=== PATIENT | male | born 1950 | race Caucasian/White ===

== ENCOUNTER 2019-11-19 00:53 | Inpatient (IN) ==
[2019-11-19] MEDS ORDERED: Naloxone 0.4 MG/ML INJ IVP PRN (02:56)
[2019-11-19] MEDS ORDERED: 0.9 % Sodium Chloride 500 ML IVC ONE (05:21)
[2019-11-19 06:01] LABS: INR 2.2
[2019-11-19] MEDS: *HR* OxyCODONE Immed Rel 5 MG TABLET PO SCH ×3 (06:05→18:27)
[2019-11-19] MEDS: Azithromycin 500 MG in 0.9 % Sodium Chloride 250 ML IVPB SCH (06:06)
[2019-11-19 06:19] LABS: Calcium 7.9 mg/dL (8.6-10.3); Magnesium 1.6 mg/dL (1.6-2.6); Phosphorous 3.5 mg/dL (2.7-4.5); Potassium 3.9 mEq/L (3.5-5.1)
[2019-11-19 07:03] LABS: Basophils # 0.1 K/mcL (0.0-0.2); Basophils % 0.4 %; Eosinophils % 0.2 %; Hematocrit 26.2 % (37.5-50.1); Hemoglobin 8.1 g/dL (12.9-16.9); Immature Granulocytes % 0.4 % (0-4); Lymphocytes # 1.9 K/mcL (0.6-4.6); Lymphocytes % 11.5 %; Mean Corpuscular HGB Conc 30.9 g/dL (31.6-35.5); Mean Corpuscular Hemoglobin 29.9 pg (28.0-33.3); Mean Corpuscular Volume 96.7 fL (83.0-100.0); Mean Platelet Volume 10.6 fL (9.4-12.4); Monocytes # 1.4 K/mcL (0.0-1.3); Monocytes % 8.8 %; Neutrophils # 12.9 K/mcL (1.6-8.9); Platelet Count 148 K/mcL (140-400); Red Blood Count 2.71 M/mcL (4.19-5.50); Red Cell Distribution Width 15.9 % (11.5-14.5); Segmented Neutrophils % 78.7 %; White Blood Count 16.3 K/mcL (4.3-11.1)
[2019-11-19] MEDS: cefTRIAXone 1,000 MG in 0.9 % Sodium Chloride Mini Bag 100 ML IVPB SCH (09:36)
[2019-11-19] MEDS: hydrALAZINE 25 MG TABLET PO SCH ×2 (09:37→19:55)
[2019-11-19] MEDS ORDERED: Cyanocobalamin (B-12) 1,000 MCG/ML VIAL IM ONE (10:42)
[2019-11-19] MEDS ORDERED: Perflutren Lipid Microsphere 1.3 ML in 0.9 % Sodium Chloride 8.7 ML IVP PRN (11:55)
[2019-11-19 14:00] LABS: Sodium, Urine 49.5 mEq/L
[2019-11-19] MEDS: Cyanocobalamin (B-12) 1,000 MCG/ML VIAL IM SCH (16:42)
[2019-11-19] MEDS ORDERED: Warfarin perPT PO PRN (18:00)
[2019-11-19] MEDS ORDERED: *HR* Warfarin 2.5 MG TABLET PO ONE (18:00)
[2019-11-19 20:59] LABS: Procalcitonin 2.16 ng/mL (0.00-0.15)
[2019-11-20] MEDS: *HR* OxyCODONE Immed Rel 5 MG TABLET PO SCH ×4 (00:10→18:04)
[2019-11-20 01:20] LABS: Basophils % 0.5 %; Eosinophils # 0.4 K/mcL (0.0-0.6); Eosinophils % 4.7 %; Hematocrit 25.6 % (37.5-50.1); Hemoglobin 8.3 g/dL (12.9-16.9); Immature Granulocytes % 0.2 % (0-4); Lymphocytes # 1.5 K/mcL (0.6-4.6); Lymphocytes % 17.2 %; Mean Corpuscular HGB Conc 32.4 g/dL (31.6-35.5); Mean Corpuscular Hemoglobin 31.3 pg (28.0-33.3); Mean Corpuscular Volume 96.6 fL (83.0-100.0); Mean Platelet Volume 10.6 fL (9.4-12.4); Monocytes # 0.9 K/mcL (0.0-1.3); Monocytes % 10.2 %; Neutrophils # 5.9 K/mcL (1.6-8.9); Platelet Count 145 K/mcL (140-400); Red Blood Count 2.65 M/mcL (4.19-5.50); Red Cell Distribution Width 16.1 % (11.5-14.5); Segmented Neutrophils % 67.2 %; White Blood Count 8.8 K/mcL (4.3-11.1)
[2019-11-20 01:23] LABS: Prothrombin Time 22.3 Seconds (9.4-12.1)
[2019-11-20 01:38] LABS: Albumin/Globulin Ratio 1.1 (1.1-2.2); Bilirubin,Total 0.4 mg/dL (0.3-1.0); Calcium 8.2 mg/dL (8.6-10.3); Globulin 2.8 g/dL (2.4-3.5); Potassium 3.7 mEq/L (3.5-5.1); Total Protein 5.8 g/dL (6.4-8.9)
[2019-11-20] MEDS: Azithromycin 500 MG in 0.9 % Sodium Chloride 250 ML IVPB SCH (06:01)
[2019-11-20] MEDS: hydrALAZINE 25 MG TABLET PO SCH ×3 (07:52→21:35)
[2019-11-20] MEDS: cefTRIAXone 1,000 MG in 0.9 % Sodium Chloride Mini Bag 100 ML IVPB SCH (07:52)
[2019-11-20] MEDS ORDERED: Dextrose Gel 15 GM/37.5 ML TUBE PO PRN ×2 (08:50)
[2019-11-20] MEDS ORDERED: *HR* Dextrose 50 % in Water (Vial) 50 ML VIAL IVP PRN (08:50)
[2019-11-20] MEDS ORDERED: D5% in Water 1,000 ML IVC PRN (08:50)
[2019-11-20] MEDS ORDERED: Furosemide 40 MG TABLET PO SCH (09:00)
[2019-11-20] MEDS: Gabapentin 300 MG CAPSULE PO SCH ×3 (09:48→21:35)
[2019-11-20 10:21] LABS: Bilirubin,Urine Negative (Negative); Blood,Urine Trace-lysed (Negative); Clarity,Urine Clear (Clear); Color,Urine Yellow (Yellow); Glucose,Urine (UA) 500 mg/dL (Normal); Ketones,Urine Negative (Negative); Leukocyte Esterase,Urine Trace (Negative); Nitrite,Urine Negative (Negative); PH,Urine 6.5 pH Units (5.0-8.0); Protein,Urine >=300 mg/dL (Neg-Trace); Specific Gravity,Urine >= 1.030 (1.010-1.025); Urobilinogen,Urine Normal (Normal)
[2019-11-20 10:25] LABS: Amorphous Sediment,Urine Few per hpf (None-Few); Bacteria,Urine Few per hpf (None-Few); Squamous Epithelial Cell,Urine Few per hpf (None-Few)
[2019-11-20] MEDS: Insulin LISPRO 300 UNITS/3 ML VIAL SQ SCH ×2 (11:42→16:31)
[2019-11-20 12:40] LABS: Estimated Average Glucose 114 mg/dl; Hemoglobin A1C 5.6 %
[2019-11-20] MEDS ORDERED: Ipratropium/Albuterol Neb 3 ML IH PRN (14:18)
[2019-11-20] MEDS: Cyanocobalamin (B-12) 1,000 MCG/ML VIAL IM SCH (15:20)
[2019-11-20] MEDS: amLODIPine 5 MG TABLET PO SCH (16:31)
[2019-11-20 17:01] LABS: Thyroid Stimulating Hormone 8.219 mcIU/mL (0.340-5.600)
[2019-11-20] MEDS ORDERED: *HR* Warfarin 2.5 MG TABLET PO ONE (18:00)
[2019-11-20] MEDS ORDERED: Aminoglycoside Consult 1 EACH MC ONE (18:14)
[2019-11-20] MEDS: Metoprolol 100 MG TABLET PO SCH (21:35)
[2019-11-20] MEDS: sulfaSALAzine 500 MG TABLET PO SCH (21:35)
[2019-11-21] MEDS: *HR* OxyCODONE Immed Rel 5 MG TABLET PO SCH ×4 (01:17→16:48)
[2019-11-21 03:13] LABS: INR 1.5; Prothrombin Time 17.6 Seconds (9.4-12.1)
[2019-11-21 03:14] LABS: Basophils # 0.1 K/mcL (0.0-0.2); Basophils % 0.4 %; Eosinophils # 0.6 K/mcL (0.0-0.6); Eosinophils % 5.4 %; Hemoglobin 8.1 g/dL (12.9-16.9); Immature Granulocytes % 0.3 % (0-4); Lymphocytes # 1.4 K/mcL (0.6-4.6); Lymphocytes % 12.3 %; Mean Corpuscular HGB Conc 31.2 g/dL (31.6-35.5); Mean Corpuscular Hemoglobin 29.7 pg (28.0-33.3); Mean Corpuscular Volume 95.2 fL (83.0-100.0); Monocytes # 1.1 K/mcL (0.0-1.3); Monocytes % 9.5 %; Neutrophils # 8.3 K/mcL (1.6-8.9); Platelet Count 164 K/mcL (140-400); Red Blood Count 2.73 M/mcL (4.19-5.50); Red Cell Distribution Width 15.9 % (11.5-14.5); Segmented Neutrophils % 72.1 %; White Blood Count 11.6 K/mcL (4.3-11.1)
[2019-11-21 03:30] LABS: Calcium 7.9 mg/dL (8.6-10.3); Potassium 3.5 mEq/L (3.5-5.1)
[2019-11-21] MEDS: Azithromycin 500 MG in 0.9 % Sodium Chloride 250 ML IVPB SCH (06:21)
[2019-11-21] MEDS: Metoprolol 100 MG TABLET PO SCH ×2 (09:01→20:50)
[2019-11-21] MEDS: sulfaSALAzine 500 MG TABLET PO SCH ×2 (09:27→20:48)
[2019-11-21] MEDS: hydrALAZINE 25 MG TABLET PO SCH ×3 (09:27→20:51)
[2019-11-21] MEDS: amLODIPine 5 MG TABLET PO SCH (09:27)
[2019-11-21] MEDS: Gabapentin 300 MG CAPSULE PO SCH ×3 (09:27→20:48)
[2019-11-21] MEDS: cefTRIAXone 1,000 MG in 0.9 % Sodium Chloride Mini Bag 100 ML IVPB SCH (09:27)
[2019-11-21] MEDS: Insulin LISPRO 300 UNITS/3 ML VIAL SQ SCH ×3 (09:28→16:49)
[2019-11-21] MEDS: Cyanocobalamin (B-12) 1,000 MCG/ML VIAL IM SCH (15:55)
[2019-11-21] MEDS ORDERED: *HR* Warfarin 5 MG TABLET PO ONE (18:00)
[2019-11-21] MEDS ORDERED: Warfarin perPT PO PRN (18:00)
[2019-11-22] MEDS: *HR* OxyCODONE Immed Rel 5 MG TABLET PO SCH ×4 (00:25→18:03)
[2019-11-22] MEDS ORDERED: *HR* Labetalol 20 MG/4 ML SYRINGE IVP ONE (05:02)
[2019-11-22 06:04] LABS: Basophils # 0.1 K/mcL (0.0-0.2); Basophils % 0.7 %; Eosinophils # 0.7 K/mcL (0.0-0.6); Eosinophils % 8.2 %; Hematocrit 25.7 % (37.5-50.1); Hemoglobin 8.2 g/dL (12.9-16.9); Immature Granulocytes % 0.4 % (0-4); Lymphocytes # 1.4 K/mcL (0.6-4.6); Lymphocytes % 17.3 %; Mean Corpuscular HGB Conc 31.9 g/dL (31.6-35.5); Mean Corpuscular Hemoglobin 30.9 pg (28.0-33.3); Mean Platelet Volume 10.6 fL (9.4-12.4); Monocytes # 0.8 K/mcL (0.0-1.3); Monocytes % 9.7 %; Neutrophils # 5.2 K/mcL (1.6-8.9); Platelet Count 161 K/mcL (140-400); Red Blood Count 2.65 M/mcL (4.19-5.50); Red Cell Distribution Width 15.9 % (11.5-14.5); Segmented Neutrophils % 63.7 %; White Blood Count 8.2 K/mcL (4.3-11.1)
[2019-11-22 06:06] LABS: INR 1.5; Prothrombin Time 17.1 Seconds (9.4-12.1)
[2019-11-22 06:28] LABS: Albumin 3.1 g/dL (3.5-5.7); Albumin/Globulin Ratio 1.1 (1.1-2.2); Bilirubin,Total 0.4 mg/dL (0.3-1.0); Calcium 8.1 mg/dL (8.6-10.3); Globulin 2.9 g/dL (2.4-3.5); Potassium 3.7 mEq/L (3.5-5.1)
[2019-11-22 06:32] LABS: Thyroid Stimulating Hormone 8.887 mcIU/mL (0.340-5.600)
[2019-11-22] MEDS: sulfaSALAzine 500 MG TABLET PO SCH ×2 (07:34→21:51)
[2019-11-22] MEDS: hydrALAZINE 25 MG TABLET PO SCH ×3 (07:34→21:50)
[2019-11-22] MEDS: Metoprolol 100 MG TABLET PO SCH ×2 (07:35→21:57)
[2019-11-22] MEDS: Azithromycin 250 MG TABLET PO SCH (07:35)
[2019-11-22] MEDS: Gabapentin 300 MG CAPSULE PO SCH ×3 (07:35→21:51)
[2019-11-22] MEDS: cefTRIAXone 1,000 MG in 0.9 % Sodium Chloride Mini Bag 100 ML IVPB SCH (07:35)
[2019-11-22] MEDS: amLODIPine 5 MG TABLET PO SCH (07:35)
[2019-11-22] MEDS: Insulin LISPRO 300 UNITS/3 ML VIAL SQ SCH ×3 (07:38→17:01)
[2019-11-22] MEDS ORDERED: 0.9 % Sodium Chloride 1,000 ML IVC ONE (12:00)
[2019-11-22 14:34] LABS: Bacteria,Urine Few per hpf (None-Few); Bilirubin,Urine Negative (Negative); Blood,Urine Negative (Negative); Clarity,Urine Clear (Clear); Color,Urine Yellow (Yellow); Glucose,Urine (UA) 500 mg/dL (Normal); Ketones,Urine Negative (Negative); Leukocyte Esterase,Urine Negative (Negative); Mucus,Urine Few per lpf (None-Few); Nitrite,Urine Negative (Negative); Protein,Urine >=600 mg/dL (Neg-Trace); Specific Gravity,Urine 1.019 (1.010-1.025); Squamous Epithelial Cell,Urine Few per hpf (None-Few); Urobilinogen,Urine Normal (Normal); WBC,Urine 15-30 per hpf (0-3)
[2019-11-22] MEDS: Cyanocobalamin (B-12) 1,000 MCG/ML VIAL IM SCH (15:53)
[2019-11-22] MEDS ORDERED: *HR* Warfarin 5 MG TABLET PO ONE (18:00)
[2019-11-23] MEDS: *HR* OxyCODONE Immed Rel 5 MG TABLET PO SCH ×5 (00:07→23:44)
[2019-11-23 02:56] LABS: Sodium, Urine 25.3 mEq/L
[2019-11-23] MEDS: sulfaSALAzine 500 MG TABLET PO SCH ×2 (07:30→21:02)
[2019-11-23] MEDS: Insulin LISPRO 300 UNITS/3 ML VIAL SQ SCH ×3 (07:31→17:30)
[2019-11-23] MEDS: Azithromycin 250 MG TABLET PO SCH (07:31)
[2019-11-23] MEDS: Amoxicillin/Clavulanate 500 MG TABLET PO SCH ×2 (07:31→17:30)
[2019-11-23] MEDS: Gabapentin 300 MG CAPSULE PO SCH ×3 (07:31→21:03)
[2019-11-23] MEDS: amLODIPine 5 MG TABLET PO SCH (07:31)
[2019-11-23] MEDS: hydrALAZINE 25 MG TABLET PO SCH ×3 (07:31→21:03)
[2019-11-23] MEDS: Metoprolol 100 MG TABLET PO SCH ×2 (07:32→21:03)
[2019-11-23 07:44] LABS: INR 1.6
[2019-11-23 07:53] LABS: Hematocrit 25.7 % (37.5-50.1); Hemoglobin 8.1 g/dL (12.9-16.9); Mean Corpuscular HGB Conc 31.5 g/dL (31.6-35.5); Mean Corpuscular Hemoglobin 30.2 pg (28.0-33.3); Mean Corpuscular Volume 95.9 fL (83.0-100.0); Mean Platelet Volume 10.7 fL (9.4-12.4); Platelet Count 193 K/mcL (140-400); Red Blood Count 2.68 M/mcL (4.19-5.50); Red Cell Distribution Width 15.7 % (11.5-14.5); White Blood Count 8.4 K/mcL (4.3-11.1)
[2019-11-23 08:25] LABS: Calcium 8.1 mg/dL (8.6-10.3); Thyroid Stimulating Hormone 8.126 mcIU/mL (0.340-5.600)
[2019-11-23 13:10] LABS: Complement C3 109 mg/dL (87-200)
[2019-11-23] MEDS: Cyanocobalamin (B-12) 1,000 MCG/ML VIAL IM SCH (15:16)
[2019-11-23] MEDS ORDERED: *HR* Warfarin 5 MG TABLET PO ONE (18:00)
[2019-11-24] MEDS ORDERED: *HR* Labetalol 20 MG/4 ML SYRINGE IVP ONE (04:10)
[2019-11-24] MEDS: *HR* OxyCODONE Immed Rel 5 MG TABLET PO SCH ×2 (06:21→12:06)
[2019-11-24] MEDS: sulfaSALAzine 500 MG TABLET PO SCH (07:20)
[2019-11-24] MEDS: hydrALAZINE 25 MG TABLET PO SCH ×2 (07:20→15:59)
[2019-11-24] MEDS: amLODIPine 5 MG TABLET PO SCH (07:20)
[2019-11-24] MEDS: Metoprolol 100 MG TABLET PO SCH (07:20)
[2019-11-24] MEDS: Gabapentin 300 MG CAPSULE PO SCH ×2 (07:20→15:59)
[2019-11-24] MEDS: Amoxicillin/Clavulanate 500 MG TABLET PO SCH ×2 (07:20→18:18)
[2019-11-24] MEDS: Insulin LISPRO 300 UNITS/3 ML VIAL SQ SCH ×2 (07:20→12:06)
[2019-11-24] MEDS: Azithromycin 250 MG TABLET PO SCH (07:20)
[2019-11-24 07:33] LABS: Hematocrit 25.6 % (37.5-50.1); Mean Corpuscular HGB Conc 31.3 g/dL (31.6-35.5); Mean Corpuscular Hemoglobin 29.5 pg (28.0-33.3); Mean Corpuscular Volume 94.5 fL (83.0-100.0); Mean Platelet Volume 10.6 fL (9.4-12.4); Platelet Count 190 K/mcL (140-400); Red Blood Count 2.71 M/mcL (4.19-5.50); Red Cell Distribution Width 15.8 % (11.5-14.5)
[2019-11-24 07:43] LABS: INR 1.6; Prothrombin Time 18.5 Seconds (9.4-12.1)
[2019-11-24 07:52] LABS: Albumin 3.1 g/dL (3.5-5.7); Calcium 8.2 mg/dL (8.6-10.3); Phosphorous 4.6 mg/dL (2.7-4.5); Potassium 3.9 mEq/L (3.5-5.1)
[2019-11-24 15:31] VITALS: BP 183/74
[2019-11-24] MEDS: Cyanocobalamin (B-12) 1,000 MCG/ML VIAL IM SCH (15:59)
[2019-11-24] MEDS ORDERED: *HR* Warfarin 5 MG TABLET PO ONE (18:00)
[2019-11-25 15:32] LABS: HIV-1 Ab Supplemental INDETERMINATE (Negative); HIV-2 Ab Supplemental NEGATIVE (Negative)
[2019-11-25 22:08] LABS: Kappa Qnt Free Light Chains 123.22 mg/L (3.30-19.40); Lambda Qnt Free Light Chains 52.95 mg/L (5.71-26.30)
[2019-11-26 10:31] LABS: Alpha 2 Globulin (PEP) 0.98 g/dL (0.48-1.05); Beta Globulin (PEP) 0.66 g/dL (0.48-1.10)
[2019-11-26 11:34] LABS: ANA IgG by ELISA DETECTED (None Detected)
[2019-11-26 11:46] LABS: IFE Reflexed NOT DONE
[2019-11-26 11:58] LABS: Serine Protease-3 Antibody 4 AU/mL (0-19)
[2019-11-27 08:15] LABS: ANA HEp-2 IgG IFA DETECTED (<1:80); Anti Nuclear Ab Pattern SPECKLED
== END 2019-11-24 18:15 | disposition home or self-care (01) | DRG 871 ==
LOC: 2ANU → SUATTDRO 02:41
PROVIDERS: ADMIT Family Medicine; ATTEND Internal Medicine

== ENCOUNTER 2020-03-06 18:17 | Inpatient (IN) ==
[2020-03-06] MEDS ORDERED: Naloxone 0.4 MG/ML INJ IVP PRN (21:09)
[2020-03-06] MEDS ORDERED: D5% in Water 1,000 ML IVC PRN (21:16)
[2020-03-06] MEDS ORDERED: Dextrose Gel 15 GM/37.5 ML TUBE PO PRN ×2 (21:16)
[2020-03-06] MEDS ORDERED: *HR* Dextrose 50 % in Water (Vial) 50 ML VIAL IVP PRN (21:16)
[2020-03-06] MEDS: Pantoprazole 40 MG in 0.9 % Sodium Chloride Mini Bag 100 ML IVC SCH (21:28)
[2020-03-06] MEDS: 0.9 % Sodium Chloride 1,000 ML IVC SCH (21:29)
[2020-03-06] MEDS ORDERED: 0.9 % Sodium Chloride 250 ML IVC SCH (22:30)
[2020-03-06] MEDS: Metoprolol 100 MG TABLET PO SCH (22:53)
[2020-03-07 00:29] LABS: Basophils # 0.1 K/mcL (0.0-0.2); Basophils % 0.4 %; Eosinophils # 0.1 K/mcL (0.0-0.6); Eosinophils % 0.5 %; Hematocrit 22.2 % (37.5-50.1); Hemoglobin 6.9 g/dL (12.9-16.9); Immature Granulocytes % 0.4 % (0-4); Lymphocytes # 0.4 K/mcL (0.6-4.6); Lymphocytes % 3.8 %; Mean Corpuscular HGB Conc 31.1 g/dL (31.6-35.5); Mean Corpuscular Hemoglobin 30.4 pg (28.0-33.3); Mean Corpuscular Volume 97.8 fL (83.0-100.0); Mean Platelet Volume 10.5 fL (9.4-12.4); Monocytes # 1.2 K/mcL (0.0-1.3); Monocytes % 10.5 %; Neutrophils # 9.6 K/mcL (1.6-8.9); Nucleated Red Blood Cells 0.2 /100 WBC (0); Platelet Count 197 K/mcL (140-400); Red Blood Count 2.27 M/mcL (4.19-5.50); Red Cell Distribution Width 15.4 % (11.5-14.5); Segmented Neutrophils % 84.4 %; White Blood Count 11.3 K/mcL (4.3-11.1)
[2020-03-07 00:31] LABS: % Iron Saturation 5 % (20-55); Calcium 8.3 mg/dL (8.6-10.3); Iron 10 mcg/dL (65-175); Potassium 3.5 mEq/L (3.5-5.1); Transferrin 157 mg/dL (203-362)
[2020-03-07 00:36] LABS: Troponin I 0.1 ng/mL (< 0.04)
[2020-03-07 00:46] LABS: Triiodothyronine (T3) Free 2.63 pg/mL (2.50-3.90)
[2020-03-07 00:50] LABS: Ferritin 110 ng/mL (20-250)
[2020-03-07] MEDS: Insulin LISPRO 300 UNITS/3 ML VIAL SQ SCH ×4 (01:21→19:25)
[2020-03-07 03:34] LABS: Basophils % 0.4 %; Eosinophils % 0.4 %; Hematocrit 20.2 % (37.5-50.1); Hemoglobin 6.5 g/dL (12.9-16.9); Immature Granulocytes % 0.4 % (0-4); Lymphocytes # 0.6 K/mcL (0.6-4.6); Lymphocytes % 6.1 %; Mean Corpuscular HGB Conc 32.2 g/dL (31.6-35.5); Mean Corpuscular Hemoglobin 31.7 pg (28.0-33.3); Mean Corpuscular Volume 98.5 fL (83.0-100.0); Mean Platelet Volume 10.5 fL (9.4-12.4); Monocytes # 1.1 K/mcL (0.0-1.3); Monocytes % 10.8 %; Neutrophils # 8.1 K/mcL (1.6-8.9); Nucleated Red Blood Cells 0.3 /100 WBC (0); Platelet Count 179 K/mcL (140-400); Red Blood Count 2.05 M/mcL (4.19-5.50); Red Cell Distribution Width 15.3 % (11.5-14.5); Segmented Neutrophils % 81.9 %; White Blood Count 9.9 K/mcL (4.3-11.1)
[2020-03-07 03:35] LABS: Hematocrit 20.7 % (37.5-50.1); Hemoglobin 6.5 g/dL (12.9-16.9)
[2020-03-07 03:45] LABS: INR 1.9; Prothrombin Time 21.8 Seconds (9.4-12.1)
[2020-03-07 03:48] LABS: Activated Partial Thrombo Time 32.5 Seconds (26.0-36.0); Potassium 3.7 mEq/L (3.5-5.1)
[2020-03-07] MEDS ORDERED: 0.9 % Sodium Chloride Mini Bag 100 ML ONE (04:14)
[2020-03-07] MEDS: Pantoprazole 40 MG in 0.9 % Sodium Chloride Mini Bag 100 ML IVC SCH ×5 (04:33→22:42)
[2020-03-07] MEDS: Metoprolol 100 MG TABLET PO SCH ×2 (07:57→20:16)
[2020-03-07] MEDS ORDERED: Iron Sucrose Complex 250 MG in 0.9 % Sodium Chloride 250 ML IVPB SCH (09:00)
[2020-03-07 09:59] LABS: Hematocrit 23.7 % (37.5-50.1); Hemoglobin 7.3 g/dL (12.9-16.9)
[2020-03-07 12:51] LABS: VBG Ionized Calcium 1.05 mmol/L (1.15-1.35)
[2020-03-07] MEDS: 0.9 % Sodium Chloride 1,000 ML IVC SCH (14:00)
[2020-03-07] MEDS: Furosemide 40 MG TABLET PO SCH ×2 (14:10→20:16)
[2020-03-07 15:43] LABS: Hematocrit 21.6 % (37.5-50.1); Hemoglobin 6.9 g/dL (12.9-16.9)
[2020-03-07] MEDS ORDERED: 0.9 % Sodium Chloride 250 ML ONE (23:48)
[2020-03-08] MEDS: Insulin LISPRO 300 UNITS/3 ML VIAL SQ SCH ×4 (02:24→17:57)
[2020-03-08] MEDS: Pantoprazole 40 MG in 0.9 % Sodium Chloride Mini Bag 100 ML IVC SCH ×4 (04:33→20:25)
[2020-03-08 06:14] LABS: Basophils # 0.1 K/mcL (0.0-0.2); Basophils % 0.5 %; Eosinophils % 0.1 %; Hematocrit 24.8 % (37.5-50.1); Hemoglobin 7.7 g/dL (12.9-16.9); Immature Granulocytes % 0.6 % (0-4); Lymphocytes # 0.5 K/mcL (0.6-4.6); Lymphocytes % 3.8 %; Mean Corpuscular Hemoglobin 29.5 pg (28.0-33.3); Mean Platelet Volume 10.8 fL (9.4-12.4); Monocytes # 1.3 K/mcL (0.0-1.3); Monocytes % 10.1 %; Neutrophils # 10.7 K/mcL (1.6-8.9); Nucleated Red Blood Cells 0.2 /100 WBC (0); Platelet Count 193 K/mcL (140-400); Red Blood Count 2.61 M/mcL (4.19-5.50); Segmented Neutrophils % 84.9 %; White Blood Count 12.6 K/mcL (4.3-11.1)
[2020-03-08 06:35] LABS: Albumin 2.9 g/dL (3.5-5.7); Phosphorous 4.5 mg/dL (2.7-4.5)
[2020-03-08 06:36] LABS: Calcium 8.1 mg/dL (8.6-10.3); Potassium 3.7 mEq/L (3.5-5.1)
[2020-03-08] MEDS ORDERED: *HR* Succinylcholine 200 MG/10 ML VIAL IVP ONE (07:45)
[2020-03-08] MEDS ORDERED: *HR* Propofol 200 MG/20 ML VIAL IVP ONE (07:46)
[2020-03-08] MEDS ORDERED: Lidocaine -MPF 2% 2 ML VIAL ONE (07:46)
[2020-03-08] MEDS: Metoprolol 100 MG TABLET PO SCH ×2 (07:49→20:24)
[2020-03-08] MEDS: Furosemide 40 MG TABLET PO SCH ×2 (07:50→17:57)
[2020-03-08] MEDS ORDERED: *HR* PHENYLEPHRINE 1,000 MCG/10 ML SYRINGE IVP ONE (07:59)
[2020-03-08] MEDS ORDERED: Gabapentin 300 MG CAPSULE PO SCH (21:00)
[2020-03-08] MEDS ORDERED: NON-FORMULARY MEDICATION 1 EACH EACH (Oxycodone Hcl 10 MG) PO SCH (21:00)
[2020-03-09] MEDS: Insulin LISPRO 300 UNITS/3 ML VIAL SQ SCH ×4 (00:36→18:50)
[2020-03-09] MEDS: Pantoprazole 40 MG in 0.9 % Sodium Chloride Mini Bag 100 ML IVC SCH ×3 (01:43→12:13)
[2020-03-09] MEDS: *HR* OxyCODONE/APAP 5/325 TABLET PO PRN (01:44)
[2020-03-09 03:51] LABS: Basophils # 0.1 K/mcL (0.0-0.2); Basophils % 0.5 %; Eosinophils # 0.1 K/mcL (0.0-0.6); Eosinophils % 0.5 %; Hematocrit 22.9 % (37.5-50.1); Hemoglobin 7.3 g/dL (12.9-16.9); Immature Granulocytes % 0.3 % (0-4); Lymphocytes # 0.8 K/mcL (0.6-4.6); Lymphocytes % 7.6 %; Mean Corpuscular HGB Conc 31.9 g/dL (31.6-35.5); Mean Corpuscular Volume 94.2 fL (83.0-100.0); Mean Platelet Volume 10.7 fL (9.4-12.4); Monocytes # 1.3 K/mcL (0.0-1.3); Monocytes % 12.5 %; Neutrophils # 8.4 K/mcL (1.6-8.9); Nucleated Red Blood Cells 0.4 /100 WBC (0); Platelet Count 187 K/mcL (140-400); Red Blood Count 2.43 M/mcL (4.19-5.50); Red Cell Distribution Width 16.5 % (11.5-14.5); Segmented Neutrophils % 78.6 %; White Blood Count 10.7 K/mcL (4.3-11.1)
[2020-03-09 03:54] LABS: INR 1.5; Prothrombin Time 17.3 Seconds (9.4-12.1)
[2020-03-09 04:04] LABS: Albumin 2.7 g/dL (3.5-5.7); Phosphorous 4.9 mg/dL (2.7-4.5)
[2020-03-09 04:05] LABS: Calcium 7.7 mg/dL (8.6-10.3); Potassium 3.3 mEq/L (3.5-5.1)
[2020-03-09] MEDS ORDERED: 0.9 % Sodium Chloride 1,000 ML PRIME SCH (07:15)
[2020-03-09] MEDS ORDERED: 0.9 % Sodium Chloride 250 ML IVC PRN (07:15)
[2020-03-09 07:21] LABS: Hepatitis B Surface Antibody < 3.10 mIU/mL
[2020-03-09 07:31] LABS: Hepatitis B Surface Antigen Nonreactive (Nonreactive)
[2020-03-09] MEDS: Metoprolol 100 MG TABLET PO SCH (07:46)
[2020-03-09] MEDS: Furosemide 40 MG TABLET PO SCH ×2 (07:56→16:11)
[2020-03-09] MEDS ORDERED: 0.9 % Sodium Chloride 500 ML ONE (08:09)
[2020-03-09] MEDS ORDERED: *HR* Heparin 5,000 UNIT/ML VIAL ONE (09:01)
[2020-03-09] MEDS ORDERED: *HR* Heparin 10,000 UNIT/10 ML VIAL IV PRN (18:54)
[2020-03-10] MEDS: Insulin LISPRO 300 UNITS/3 ML VIAL SQ SCH ×5 (00:29→21:08)
[2020-03-10 06:01] LABS: Hematocrit 25.1 % (37.5-50.1); Hemoglobin 7.9 g/dL (12.9-16.9); Mean Corpuscular HGB Conc 31.5 g/dL (31.6-35.5); Mean Corpuscular Hemoglobin 29.7 pg (28.0-33.3); Mean Corpuscular Volume 94.4 fL (83.0-100.0); Mean Platelet Volume 10.5 fL (9.4-12.4); Platelet Count 209 K/mcL (140-400); Red Blood Count 2.66 M/mcL (4.19-5.50); Red Cell Distribution Width 16.5 % (11.5-14.5); White Blood Count 13.7 K/mcL (4.3-11.1)
[2020-03-10 06:19] LABS: Magnesium 1.8 mg/dL (1.6-2.6); Potassium 3.5 mEq/L (3.5-5.1)
[2020-03-10] MEDS ORDERED: 0.9 % Sodium Chloride 250 ML IVC PRN (06:56)
[2020-03-10] MEDS: Furosemide 40 MG TABLET PO SCH ×2 (08:01→18:09)
[2020-03-10] MEDS ORDERED: *HR* Heparin 10,000 UNIT/10 ML VIAL IV PRN (09:39)
[2020-03-10] MEDS ORDERED: Ferumoxytol 510 MG in 0.9 % Sodium Chloride 100 ML IVPB ONE (10:23)
[2020-03-10] MEDS: Metoprolol XL (24 HR) Succ 50 MG TAB.ER.24H PO SCH (11:47)
[2020-03-10] MEDS: *HR* OxyCODONE/APAP 5/325 TABLET PO PRN (14:17)
[2020-03-11] MEDS: *HR* OxyCODONE/APAP 5/325 TABLET PO PRN ×3 (05:48→22:04)
[2020-03-11 05:55] LABS: Hematocrit 23.7 % (37.5-50.1); Hemoglobin 7.6 g/dL (12.9-16.9); Mean Corpuscular HGB Conc 32.1 g/dL (31.6-35.5); Mean Corpuscular Hemoglobin 29.8 pg (28.0-33.3); Mean Corpuscular Volume 92.9 fL (83.0-100.0); Mean Platelet Volume 10.3 fL (9.4-12.4); Platelet Count 203 K/mcL (140-400); Red Blood Count 2.55 M/mcL (4.19-5.50); White Blood Count 12.3 K/mcL (4.3-11.1)
[2020-03-11 05:59] LABS: VBG Ionized Calcium 1.06 mmol/L (1.15-1.35)
[2020-03-11 06:15] LABS: Calcium 8.1 mg/dL (8.6-10.3); Magnesium 1.8 mg/dL (1.6-2.6); Potassium 3.7 mEq/L (3.5-5.1)
[2020-03-11] MEDS ORDERED: Furosemide 20 MG/2 ML VIAL IVP ONE (07:53)
[2020-03-11] MEDS ORDERED: 0.9 % Sodium Chloride 250 ML IVC SCH (08:00)
[2020-03-11] MEDS ORDERED: Cholecalciferol (D-3) 1,000 UNIT (25MCG) TABLET PO SCH (09:00)
[2020-03-11] MEDS: Insulin LISPRO 300 UNITS/3 ML VIAL SQ SCH ×4 (10:03→21:12)
[2020-03-11] MEDS: Furosemide 40 MG TABLET PO SCH ×2 (10:15→16:09)
[2020-03-11] MEDS: Cholecalciferol (D-3) 1,000 UNIT (25MCG) TABLET PO SCH (10:15)
[2020-03-11] MEDS: Metoprolol XL (24 HR) Succ 50 MG TAB.ER.24H PO SCH (10:16)
[2020-03-11] MEDS ORDERED: Calcium Gluconate 1gm/50mL 1 GM/50 ML BAG IVPB ONE (15:19)
[2020-03-11] MEDS: Acetaminophen 325 MG TABLET PO PRN (21:09)
[2020-03-12 04:55] LABS: Basophils % 0.3 %; Eosinophils # 0.1 K/mcL (0.0-0.6); Eosinophils % 1.2 %; Hematocrit 25.9 % (37.5-50.1); Hemoglobin 8.3 g/dL (12.9-16.9); Immature Granulocytes % 1.1 % (0-4); Lymphocytes # 0.7 K/mcL (0.6-4.6); Mean Corpuscular Hemoglobin 29.7 pg (28.0-33.3); Mean Corpuscular Volume 92.8 fL (83.0-100.0); Mean Platelet Volume 10.5 fL (9.4-12.4); Monocytes # 1.1 K/mcL (0.0-1.3); Monocytes % 9.5 %; Neutrophils # 9.9 K/mcL (1.6-8.9); Platelet Count 192 K/mcL (140-400); Red Blood Count 2.79 M/mcL (4.19-5.50); Red Cell Distribution Width 16.4 % (11.5-14.5); Segmented Neutrophils % 81.9 %
[2020-03-12 05:07] LABS: INR 1.3; Prothrombin Time 15.4 Seconds (9.4-12.1)
[2020-03-12 05:15] LABS: Calcium 8.2 mg/dL (8.6-10.3); Potassium 3.4 mEq/L (3.5-5.1)
[2020-03-12] MEDS ORDERED: 0.9 % Sodium Chloride 250 ML IVC PRN (07:03)
[2020-03-12] MEDS: Insulin LISPRO 300 UNITS/3 ML VIAL SQ SCH ×4 (08:10→20:50)
[2020-03-12] MEDS: Cholecalciferol (D-3) 1,000 UNIT (25MCG) TABLET PO SCH (08:13)
[2020-03-12] MEDS: Metoprolol XL (24 HR) Succ 50 MG TAB.ER.24H PO SCH (09:38)
[2020-03-12] MEDS: Furosemide 40 MG TABLET PO SCH ×2 (12:52→18:19)
[2020-03-12] MEDS ORDERED: Heparin 1,000 UNITS/500 mL 500 ML ONE (13:39)
[2020-03-12] MEDS ORDERED: Lidocaine/EPI 1:100k 1% 50 ML VIAL ONE (13:39)
[2020-03-12] MEDS ORDERED: 0.9 % Sodium Chloride 250 ML ONE (14:02)
[2020-03-12] MEDS ORDERED: *HR* Heparin 5,000 UNIT/ML VIAL ONE (14:09)
[2020-03-12] MEDS ORDERED: CeFAZolin 2,000 MG/50 ML BAG IVPB ONE (14:11)
[2020-03-12] MEDS: Ondansetron 4 MG/2 ML VIAL IVP PRN (20:50)
[2020-03-12] MEDS: Acetaminophen 325 MG TABLET PO PRN (20:51)
[2020-03-13] MEDS: *HR* OxyCODONE/APAP 5/325 TABLET PO PRN ×2 (01:08→20:42)
[2020-03-13] MEDS: Metoprolol XL (24 HR) Succ 50 MG TAB.ER.24H PO SCH (08:22)
[2020-03-13] MEDS: Cholecalciferol (D-3) 1,000 UNIT (25MCG) TABLET PO SCH (08:22)
[2020-03-13] MEDS: Furosemide 40 MG TABLET PO SCH ×2 (08:23→17:25)
[2020-03-13] MEDS: Insulin LISPRO 300 UNITS/3 ML VIAL SQ SCH ×4 (08:23→20:42)
[2020-03-13 10:02] LABS: Basophils % 0.2 %; Eosinophils % 0.2 %; Hematocrit 30.7 % (37.5-50.1); Hemoglobin 9.8 g/dL (12.9-16.9); Immature Granulocytes % 0.7 % (0-4); Lymphocytes # 0.4 K/mcL (0.6-4.6); Lymphocytes % 2.7 %; Mean Corpuscular HGB Conc 31.9 g/dL (31.6-35.5); Mean Corpuscular Hemoglobin 29.4 pg (28.0-33.3); Mean Corpuscular Volume 92.2 fL (83.0-100.0); Mean Platelet Volume 10.6 fL (9.4-12.4); Monocytes # 1.1 K/mcL (0.0-1.3); Monocytes % 6.7 %; Neutrophils # 14.7 K/mcL (1.6-8.9); Platelet Count 216 K/mcL (140-400); Red Blood Count 3.33 M/mcL (4.19-5.50); Segmented Neutrophils % 89.5 %; White Blood Count 16.4 K/mcL (4.3-11.1)
[2020-03-13 10:20] LABS: Calcium 8.1 mg/dL (8.6-10.3); Potassium 3.6 mEq/L (3.5-5.1)
[2020-03-14 02:05] LABS: Basophils % 0.1 %; Eosinophils % 0.1 %; Hematocrit 28.7 % (37.5-50.1); Immature Granulocytes % 1.3 % (0-4); Lymphocytes # 0.6 K/mcL (0.6-4.6); Lymphocytes % 2.7 %; Mean Corpuscular HGB Conc 31.4 g/dL (31.6-35.5); Mean Corpuscular Hemoglobin 28.8 pg (28.0-33.3); Mean Corpuscular Volume 91.7 fL (83.0-100.0); Mean Platelet Volume 10.5 fL (9.4-12.4); Monocytes % 8.7 %; Neutrophils # 19.8 K/mcL (1.6-8.9); Nucleated Red Blood Cells 0.1 /100 WBC (0); Platelet Count 216 K/mcL (140-400); Red Blood Count 3.13 M/mcL (4.19-5.50); Red Cell Distribution Width 15.9 % (11.5-14.5); Segmented Neutrophils % 87.1 %; White Blood Count 22.7 K/mcL (4.3-11.1)
[2020-03-14 02:29] LABS: Calcium 8.1 mg/dL (8.6-10.3); Potassium 3.5 mEq/L (3.5-5.1)
[2020-03-14] MEDS: Cholecalciferol (D-3) 1,000 UNIT (25MCG) TABLET PO SCH (06:07)
[2020-03-14] MEDS: Metoprolol XL (24 HR) Succ 50 MG TAB.ER.24H PO SCH (06:08)
[2020-03-14] MEDS: Furosemide 40 MG TABLET PO SCH ×2 (06:09→16:31)
[2020-03-14] MEDS: Insulin LISPRO 300 UNITS/3 ML VIAL SQ SCH ×4 (08:00→23:59)
[2020-03-14] MEDS ORDERED: Vancomycin 1,500 MG/265 ML IV.SOLN IVPB ONE (08:01)
[2020-03-14] MEDS ORDERED: 0.9 % Sodium Chloride 250 ML IVC PRN (08:23)
[2020-03-14] MEDS ORDERED: *HR* Heparin 10,000 UNIT/10 ML VIAL IV PRN (08:23)
[2020-03-14] MEDS ORDERED: 0.9 % Sodium Chloride 1,000 ML PRIME SCH (08:30)
[2020-03-14] MEDS ORDERED: levoFLOXacin 750 MG/150 ML 750 MG/150 ML BAG IVPB SCH (09:00)
[2020-03-14] MEDS: Cefepime HCl 2,000 MG in Water for inj. (sterile) 20 ML IVP SCH ×2 (09:30→21:27)
[2020-03-14 11:01] LABS: Estimated Average Glucose 97 mg/dl
[2020-03-14] MEDS: Ondansetron 4 MG/2 ML VIAL IVP PRN (11:40)
[2020-03-14] MEDS ORDERED: Furosemide 40 MG/4 ML VIAL IVP STA (11:52)
[2020-03-14 12:24] LABS: Hematocrit 28.4 % (37.5-50.1); Mean Corpuscular HGB Conc 31.7 g/dL (31.6-35.5)
[2020-03-14] MEDS ORDERED: Morphine Sulfate 2 MG/ML SYRINGE IVP STA (12:25)
[2020-03-14 12:26] LABS: Mean Corpuscular Hemoglobin 29.3 pg (28.0-33.3); Mean Corpuscular Volume 92.5 fL (83.0-100.0); Mean Platelet Volume 10.9 fL (9.4-12.4); Platelet Count 215 K/mcL (140-400); Red Blood Count 3.07 M/mcL (4.19-5.50); Red Cell Distribution Width 16.1 % (11.5-14.5); White Blood Count 28.5 K/mcL (4.3-11.1)
[2020-03-14 12:40] LABS: Troponin I 0.11 ng/mL (< 0.04)
[2020-03-14 12:54] LABS: Eosinophils # 0.6 K/mcL (0.0-0.6); Lymphocytes # 1.7 K/mcL (0.6-4.6); Monocytes # 1.7 K/mcL (0.0-1.3); Neutrophils # 24.5 K/mcL (1.6-8.9); Platelet Estimate Normal (Normal)
[2020-03-14 15:28] LABS: Albumin 2.6 g/dL (3.5-5.7); Albumin/Globulin Ratio 0.8 (1.1-2.2); Bilirubin,Direct 1.4 mg/dL (0.0-0.2); Bilirubin,Indirect 0.8 mg/dL (0.0-1.0); Bilirubin,Total 2.2 mg/dL (0.3-1.0); Globulin 3.2 g/dL (2.4-3.5); Total Protein 5.8 g/dL (6.4-8.9)
[2020-03-14 23:26] LABS: Acinetobacter baumannii by PCR Not Detected (Not Detect); Candida albicans by PCR Not Detected (Not Detect); Candida glabrata by PCR Not Detected (Not Detect); Enterobacter cloacae Cmplx PCR Not Detected (Not Detect); Enterococcus by PCR Not Detected (Not Detect); Escherichia coli by PCR Not Detected (Not Detect); Klebsiella oxytoca by PCR Not Detected (Not Detect); Klebsiella pneumoniae by PCR DETECTED (Not Detect); Proteus by PCR Not Detected (Not Detect); Pseudomonas aeruginosa by PCR Not Detected (Not Detect); Serratia marcescens by PCR Not Detected (Not Detect); Staphylococcus aureus by PCR Not Detected (Not Detect); Staphylococcus by PCR Not Detected (Not Detect); Streptococcus agalactiae(B)PCR Not Detected (Not Detect); Streptococcus by PCR Not Detected (Not Detect); Streptococcus pneumoniae PCR Not Detected (Not Detect); Streptococcus pyogenes (A) PCR Not Detected (Not Detect); blaKPC Carbapenem-Resist Gene Not Detected (Not Detect); mecA Methicillin-Resist Gene Not Detected (Not Detect); vanA/B Vancomycin-Resist Genes Not Detected (Not Detect)
[2020-03-14 23:27] LABS: Candida krusei by PCR Not Detected (Not Detect); Candida parapsilosis by PCR Not Detected (Not Detect); Candida tropicalis by PCR Not Detected (Not Detect)
[2020-03-15 02:39] LABS: Basophils % 0.1 %; Eosinophils % 0.1 %; Hematocrit 29.1 % (37.5-50.1); Hemoglobin 9.1 g/dL (12.9-16.9); Lymphocytes # 0.9 K/mcL (0.6-4.6); Lymphocytes % 3.6 %; Mean Corpuscular HGB Conc 31.3 g/dL (31.6-35.5); Mean Corpuscular Hemoglobin 29.2 pg (28.0-33.3); Mean Corpuscular Volume 93.3 fL (83.0-100.0); Mean Platelet Volume 11.1 fL (9.4-12.4); Monocytes # 2.4 K/mcL (0.0-1.3); Monocytes % 9.7 %; Neutrophils # 20.6 K/mcL (1.6-8.9); Platelet Count 196 K/mcL (140-400); Red Blood Count 3.12 M/mcL (4.19-5.50); Segmented Neutrophils % 84.5 %; White Blood Count 24.4 K/mcL (4.3-11.1)
[2020-03-15 02:57] LABS: Potassium 3.7 mEq/L (3.5-5.1)
[2020-03-15] MEDS: Insulin LISPRO 300 UNITS/3 ML VIAL SQ SCH ×4 (08:38→21:32)
[2020-03-15] MEDS: Metoprolol XL (24 HR) Succ 50 MG TAB.ER.24H PO SCH (08:52)
[2020-03-15] MEDS: Cholecalciferol (D-3) 1,000 UNIT (25MCG) TABLET PO SCH (08:52)
[2020-03-15] MEDS: Furosemide 40 MG TABLET PO SCH ×2 (08:52→17:32)
[2020-03-15] MEDS: Cefepime HCl 2,000 MG in Water for inj. (sterile) 20 ML IVP SCH (08:52)
[2020-03-16] MEDS: Cholecalciferol (D-3) 1,000 UNIT (25MCG) TABLET PO SCH (08:11)
[2020-03-16] MEDS: Furosemide 40 MG TABLET PO SCH ×2 (08:11→17:05)
[2020-03-16] MEDS: Metoprolol XL (24 HR) Succ 50 MG TAB.ER.24H PO SCH (08:11)
[2020-03-16] MEDS: *HR* OxyCODONE/APAP 5/325 TABLET PO PRN (08:11)
[2020-03-16] MEDS: Insulin LISPRO 300 UNITS/3 ML VIAL SQ SCH ×4 (08:12→19:22)
[2020-03-16] MEDS: Cefepime HCl 2,000 MG in Water for inj. (sterile) 20 ML IVP SCH (08:18)
[2020-03-16 08:42] LABS: Hematocrit 28.6 % (37.5-50.1); Hemoglobin 9.1 g/dL (12.9-16.9); Mean Corpuscular HGB Conc 31.8 g/dL (31.6-35.5); Mean Corpuscular Hemoglobin 29.3 pg (28.0-33.3); Mean Platelet Volume 10.6 fL (9.4-12.4); Platelet Count 204 K/mcL (140-400); Red Blood Count 3.11 M/mcL (4.19-5.50); Red Cell Distribution Width 16.2 % (11.5-14.5); White Blood Count 29.2 K/mcL (4.3-11.1)
[2020-03-16 08:52] LABS: Calcium 8.3 mg/dL (8.6-10.3); Potassium 4.2 mEq/L (3.5-5.1)
[2020-03-16 09:01] LABS: Lymphocytes # 0.9 K/mcL (0.6-4.6); Monocytes # 1.2 K/mcL (0.0-1.3); Neutrophils # 27.2 K/mcL (1.6-8.9)
[2020-03-16 09:02] LABS: Platelet Estimate Normal (Normal)
[2020-03-16] MEDS ORDERED: 0.9 % Sodium Chloride 250 ML IVC PRN (09:50)
[2020-03-16] MEDS ORDERED: *HR* Heparin 10,000 UNIT/10 ML VIAL IV PRN (09:50)
[2020-03-16] MEDS ORDERED: 0.9 % Sodium Chloride 1,000 ML PRIME SCH (10:00)
[2020-03-16 14:13] LABS: Albumin 2.4 g/dL (3.5-5.7); Albumin/Globulin Ratio 0.7 (1.1-2.2); Bilirubin,Direct 1.3 mg/dL (0.0-0.2); Bilirubin,Indirect 0.7 mg/dL (0.0-1.0); Globulin 3.4 g/dL (2.4-3.5); Total Protein 5.8 g/dL (6.4-8.9)
[2020-03-16] MEDS: metroNIDAZOLE 500 MG TABLET PO SCH ×2 (15:35→19:22)
[2020-03-16] MEDS ORDERED: Morphine Sulfate 2 MG/ML SYRINGE IVP ONE (16:39)
[2020-03-17 04:40] LABS: Mean Corpuscular Volume 91.4 fL (83.0-100.0); Red Cell Distribution Width 16.1 % (11.5-14.5)
[2020-03-17 04:41] LABS: Hematocrit 29.7 % (37.5-50.1); Hemoglobin 9.4 g/dL (12.9-16.9); Mean Corpuscular HGB Conc 31.6 g/dL (31.6-35.5); Mean Corpuscular Hemoglobin 28.9 pg (28.0-33.3); Mean Platelet Volume 10.7 fL (9.4-12.4); Platelet Count 210 K/mcL (140-400); Red Blood Count 3.25 M/mcL (4.19-5.50); White Blood Count 26.7 K/mcL (4.3-11.1)
[2020-03-17 05:00] LABS: Albumin 2.5 g/dL (3.5-5.7); Albumin/Globulin Ratio 0.7 (1.1-2.2); Calcium 8.3 mg/dL (8.6-10.3); Globulin 3.6 g/dL (2.4-3.5); Potassium 4.3 mEq/L (3.5-5.1); Total Protein 6.1 g/dL (6.4-8.9)
[2020-03-17] MEDS: Cefepime HCl 2,000 MG in Water for inj. (sterile) 20 ML IVP SCH (05:59)
[2020-03-17] MEDS ORDERED: cefOXitin 1,000 MG, 0.9 % Sodium Chloride 1,000 ML IR ONE ×2 (07:00→11:33)
[2020-03-17] MEDS ORDERED: *HR* Propofol 200 MG/20 ML VIAL IVP ONE (07:07)
[2020-03-17] MEDS ORDERED: Ondansetron 4 MG/2 ML VIAL ONE (07:07)
[2020-03-17] MEDS ORDERED: Dexamethasone 4 MG/ML VIAL ONE (07:07)
[2020-03-17] MEDS ORDERED: *HR* Succinylcholine 200 MG/10 ML VIAL IVP ONE (07:07)
[2020-03-17] MEDS ORDERED: Lidocaine -MPF 2% 2 ML VIAL ONE (07:07)
[2020-03-17] MEDS ORDERED: *HR* Rocuronium Bromide 50 MG/5 ML VIAL ONE (07:07)
[2020-03-17] MEDS ORDERED: *HR* FentaNYL (PF) 100 MCG/2 ML VIAL ONE (07:07)
[2020-03-17] MEDS ORDERED: *HR* Midazolam HCl 2 MG/2 ML VIAL ONE (07:07)
[2020-03-17] MEDS ORDERED: Lidocaine HCL 4 ML Topical Solution (Laryng-O-Jet Kit Sterile Pak) TP ONE (07:13)
[2020-03-17] MEDS: Insulin LISPRO 300 UNITS/3 ML VIAL SQ SCH ×4 (07:29→19:46)
[2020-03-17] MEDS: Furosemide 40 MG TABLET PO SCH ×2 (07:29→16:13)
[2020-03-17] MEDS: Cholecalciferol (D-3) 1,000 UNIT (25MCG) TABLET PO SCH (07:41)
[2020-03-17] MEDS: Metoprolol XL (24 HR) Succ 50 MG TAB.ER.24H PO SCH (07:42)
[2020-03-17] MEDS: metroNIDAZOLE 500 MG TABLET PO SCH ×3 (07:42→19:50)
[2020-03-17] MEDS ORDERED: Isovue-300 50ML VIAL ONE (07:50)
[2020-03-17 08:16] LABS: Adenovirus Not Detected (Not Detect); Bordetella Pertussis Not Detected (Not Detect); Chlamydophila pneumoniae Not Detected (Not Detect); Coronavirus 229E Not Detected (Not Detect); Coronavirus HKU1 Not Detected (Not Detect); Coronavirus NL63 Not Detected (Not Detect); Coronavirus OC43 Not Detected (Not Detect); Human Metapneumovirus Not Detected (Not Detect); Human Rhinovirus/Enterovirus Not Detected (Not Detect); Influenza A Subtype 2009 H1 Not Detected (Not Detect); Influenza B Not Detected (Not Detect); Mycoplasma pneumoniae Not Detected (Not Detect); Parainfluenza Virus 1 Not Detected (Not Detect); Parainfluenza Virus 2 Not Detected (Not Detect); Parainfluenza Virus 3 Not Detected (Not Detect); Parainfluenza Virus 4 Not Detected (Not Detect); Respiratory Syncytial Virus Not Detected (Not Detect); SARS-CoV-2 Not Detected (Not Detect)
[2020-03-17] MEDS ORDERED: *HR* OxyCODONE Immed Rel 5 MG TABLET PO PRN (08:54)
[2020-03-17] MEDS ORDERED: *HR* PHENYLEPHRINE 1,000 MCG/10 ML SYRINGE IVP ONE (09:10)
[2020-03-17] MEDS: *HR* HYDROmorphone PF 0.5 MG/0.5 ML SYRINGE IVP PRN ×2 (10:38→10:45)
[2020-03-17] MEDS ORDERED: 0.9 % Sodium Chloride 250 ML IVC PRN (11:33)
[2020-03-17] MEDS ORDERED: Ondansetron 4 MG/2 ML VIAL IVP PRN (11:33)
[2020-03-17] MEDS ORDERED: Naloxone 0.4 MG/ML INJ IVP PRN (11:33)
[2020-03-17] MEDS ORDERED: 0.9 % Sodium Chloride 1,000 ML PRIME SCH (11:33)
[2020-03-17] MEDS ORDERED: *HR* Dextrose 50 % in Water (Vial) 50 ML VIAL IVP PRN (11:33)
[2020-03-17] MEDS ORDERED: D5% in Water 1,000 ML IVC PRN (11:33)
[2020-03-17] MEDS ORDERED: 0.9 % Sodium Chloride 250 ML IVC SCH (11:33)
[2020-03-17] MEDS ORDERED: Dextrose Gel 15 GM/37.5 ML TUBE PO PRN ×2 (11:33)
[2020-03-17] MEDS ORDERED: Acetaminophen 325 MG TABLET PO PRN (11:33)
[2020-03-17] MEDS: *HR* OxyCODONE/APAP 5/325 TABLET PO PRN ×2 (12:34→23:17)
[2020-03-17] MEDS ORDERED: Morphine Sulfate 2 MG/ML SYRINGE IVP ONE (16:02)
[2020-03-18 00:27] LABS: Hematocrit 27.6 % (37.5-50.1); Hemoglobin 8.8 g/dL (12.9-16.9)
[2020-03-18] MEDS ORDERED: *HR* OxyCODONE Immed Rel 5 MG TABLET PO ONE (00:36)
[2020-03-18 05:21] LABS: Basophils % 0.1 %; Eosinophils # 0.1 K/mcL (0.0-0.6); Eosinophils % 0.2 %; Hematocrit 26.6 % (37.5-50.1); Hemoglobin 8.4 g/dL (12.9-16.9); Immature Granulocytes % 0.8 % (0-4); Lymphocytes # 0.8 K/mcL (0.6-4.6); Lymphocytes % 3.6 %; Mean Corpuscular HGB Conc 31.6 g/dL (31.6-35.5); Mean Corpuscular Hemoglobin 28.5 pg (28.0-33.3); Mean Corpuscular Volume 90.2 fL (83.0-100.0); Monocytes # 2.3 K/mcL (0.0-1.3); Monocytes % 10.5 %; Neutrophils # 18.1 K/mcL (1.6-8.9); Platelet Count 205 K/mcL (140-400); Red Blood Count 2.95 M/mcL (4.19-5.50); Red Cell Distribution Width 16.2 % (11.5-14.5); Segmented Neutrophils % 84.8 %; White Blood Count 21.4 K/mcL (4.3-11.1)
[2020-03-18 05:41] LABS: Albumin 2.2 g/dL (3.5-5.7); Albumin/Globulin Ratio 0.7 (1.1-2.2); Bilirubin,Total 1.7 mg/dL (0.3-1.0); Globulin 3.2 g/dL (2.4-3.5); Potassium 4.4 mEq/L (3.5-5.1); Total Protein 5.4 g/dL (6.4-8.9)
[2020-03-18] MEDS ORDERED: Cefepime HCl 2,000 MG in Water for inj. (sterile) 20 ML IVP SCH (07:00)
[2020-03-18] MEDS ORDERED: *HR* Heparin 10,000 UNIT/10 ML VIAL IV PRN (07:39)
[2020-03-18] MEDS ORDERED: 0.9 % Sodium Chloride 1,000 ML PRIME SCH (07:45)
[2020-03-18] MEDS: Insulin LISPRO 300 UNITS/3 ML VIAL SQ SCH ×4 (08:05→20:29)
[2020-03-18] MEDS: metroNIDAZOLE 500 MG TABLET PO SCH ×3 (08:06→20:29)
[2020-03-18] MEDS: Cholecalciferol (D-3) 1,000 UNIT (25MCG) TABLET PO SCH (08:06)
[2020-03-18] MEDS: *HR* OxyCODONE/APAP 5/325 TABLET PO PRN ×2 (08:14→16:14)
[2020-03-18] MEDS: Furosemide 40 MG TABLET PO SCH ×2 (12:41→16:08)
[2020-03-18] MEDS: Metoprolol XL (24 HR) Succ 50 MG TAB.ER.24H PO SCH (12:41)
[2020-03-18] MEDS ORDERED: Cefepime HCl 1,000 MG in Water for inj. (sterile) 10 ML IVP SCH (16:00)
[2020-03-18] MEDS ORDERED: Haloperidol Lactate 5 MG/ML VIAL IVP ONE (18:36)
[2020-03-18] MEDS: Sennosides/Docusate Sodium TABLET PO SCH (20:28)
[2020-03-19 05:24] LABS: Basophils % 0.1 %; Eosinophils # 0.2 K/mcL (0.0-0.6); Eosinophils % 0.7 %; Hematocrit 28.3 % (37.5-50.1); Hemoglobin 8.9 g/dL (12.9-16.9); Immature Granulocytes % 1.4 % (0-4); Lymphocytes % 4.4 %; Mean Corpuscular HGB Conc 31.4 g/dL (31.6-35.5); Mean Corpuscular Hemoglobin 28.4 pg (28.0-33.3); Mean Corpuscular Volume 90.4 fL (83.0-100.0); Mean Platelet Volume 10.9 fL (9.4-12.4); Monocytes # 2.4 K/mcL (0.0-1.3); Monocytes % 10.4 %; Nucleated Red Blood Cells 0.1 /100 WBC (0); Platelet Count 207 K/mcL (140-400); Red Blood Count 3.13 M/mcL (4.19-5.50); Red Cell Distribution Width 16.4 % (11.5-14.5); White Blood Count 22.9 K/mcL (4.3-11.1)
[2020-03-19 05:35] LABS: Albumin 2.5 g/dL (3.5-5.7); Albumin/Globulin Ratio 0.7 (1.1-2.2); Bilirubin,Total 1.9 mg/dL (0.3-1.0); Globulin 3.7 g/dL (2.4-3.5); Potassium 3.9 mEq/L (3.5-5.1); Total Protein 6.2 g/dL (6.4-8.9)
[2020-03-19] MEDS: Cholecalciferol (D-3) 1,000 UNIT (25MCG) TABLET PO SCH (07:40)
[2020-03-19] MEDS: metroNIDAZOLE 500 MG TABLET PO SCH ×3 (07:40→21:09)
[2020-03-19] MEDS: Metoprolol XL (24 HR) Succ 50 MG TAB.ER.24H PO SCH (07:40)
[2020-03-19] MEDS: Furosemide 40 MG TABLET PO SCH ×2 (07:40→16:01)
[2020-03-19] MEDS: Sennosides/Docusate Sodium TABLET PO SCH ×2 (07:40→21:09)
[2020-03-19] MEDS: Insulin LISPRO 300 UNITS/3 ML VIAL SQ SCH ×4 (07:41→21:10)
[2020-03-19] MEDS: Cefepime HCl 1,000 MG in Water for inj. (sterile) 10 ML IVP SCH (16:01)
[2020-03-19] MEDS: 0.9 % Sodium Chloride 250 ML IVC PRN (16:23)
[2020-03-19] MEDS: Gabapentin 300 MG CAPSULE PO SCH (21:09)
[2020-03-20] MEDS: *HR* OxyCODONE/APAP 5/325 TABLET PO PRN ×2 (00:15→17:14)
[2020-03-20 05:47] LABS: Basophils % 0.2 %; Eosinophils # 0.2 K/mcL (0.0-0.6); Eosinophils % 0.9 %; Hematocrit 24.4 % (37.5-50.1); Hemoglobin 7.8 g/dL (12.9-16.9); Immature Granulocytes % 1.3 % (0-4); Lymphocytes # 1.3 K/mcL (0.6-4.6); Lymphocytes % 5.8 %; Mean Corpuscular Hemoglobin 29.1 pg (28.0-33.3); Mean Platelet Volume 10.9 fL (9.4-12.4); Monocytes % 8.7 %; Neutrophils # 18.7 K/mcL (1.6-8.9); Platelet Count 197 K/mcL (140-400); Red Blood Count 2.68 M/mcL (4.19-5.50); Red Cell Distribution Width 16.5 % (11.5-14.5); Segmented Neutrophils % 83.1 %; White Blood Count 22.4 K/mcL (4.3-11.1)
[2020-03-20 06:44] LABS: Alanine Aminotransferase < 3 Units/L (7-52); Albumin 2.1 g/dL (3.5-5.7); Albumin/Globulin Ratio 0.7 (1.1-2.2); Alkaline Phosphatase 148 Units/L (34-104); Aspartate Amino Transferase 18 Units/L (13-39); BUN/Creatinine Ratio 10 (6-26); Bilirubin,Total 1.4 mg/dL (0.3-1.0); Blood Urea Nitrogen 39 mg/dL (8-23); Calcium 7.6 mg/dL (8.6-10.3); Carbon Dioxide 25 mEq/L (23-29); Chloride 102 mEq/L (98-107); Globulin 3.2 g/dL (2.4-3.5); Glucose 145 mg/dL (70-105); Osmolality,Calculated 292 (280-300); Potassium 3.9 mEq/L (3.5-5.1); Sodium 135 mEq/L (136-145); Total Protein 5.3 g/dL (6.4-8.9); eGFR For African Americans 20 (> 60); eGFR For Non-African Americans 16 (> 60)
[2020-03-20] MEDS: Sennosides/Docusate Sodium TABLET PO SCH ×2 (08:14→20:50)
[2020-03-20] MEDS: metroNIDAZOLE 500 MG TABLET PO SCH ×3 (08:14→20:51)
[2020-03-20] MEDS: Cholecalciferol (D-3) 1,000 UNIT (25MCG) TABLET PO SCH (08:14)
[2020-03-20] MEDS ORDERED: 0.9 % Sodium Chloride 250 ML IVC PRN (08:18)
[2020-03-20] MEDS: Insulin LISPRO 300 UNITS/3 ML VIAL SQ SCH ×4 (08:18→20:44)
[2020-03-20] MEDS ORDERED: *HR* Heparin 10,000 UNIT/10 ML VIAL IV PRN (08:18)
[2020-03-20] MEDS: Furosemide 40 MG TABLET PO SCH ×2 (08:48→15:50)
[2020-03-20] MEDS: Metoprolol XL (24 HR) Succ 50 MG TAB.ER.24H PO SCH ×2 (09:55→14:10)
[2020-03-20] MEDS ORDERED: Albumin 25% 25gram/100mL 25 GM/100 ML IV.SOLN ONE (11:59)
[2020-03-20] MEDS: Cefepime HCl 1,000 MG in Water for inj. (sterile) 10 ML IVP SCH (15:48)
[2020-03-20] MEDS: 0.9 % Sodium Chloride 250 ML IVC PRN (17:46)
[2020-03-20] MEDS: Gabapentin 300 MG CAPSULE PO SCH (20:52)
[2020-03-21] MEDS ORDERED: *HR* Metoprolol 5 MG/5 ML VIAL IVP ONE ×6 (00:16→23:10)
[2020-03-21] MEDS: *HR* OxyCODONE/APAP 5/325 TABLET PO PRN (05:36)
[2020-03-21 05:46] LABS: Hematocrit 26.8 % (37.5-50.1); Hemoglobin 8.3 g/dL (12.9-16.9); Mean Corpuscular Hemoglobin 28.4 pg (28.0-33.3); Mean Corpuscular Volume 91.8 fL (83.0-100.0); Mean Platelet Volume 10.8 fL (9.4-12.4); Platelet Count 215 K/mcL (140-400); Red Blood Count 2.92 M/mcL (4.19-5.50); White Blood Count 21.6 K/mcL (4.3-11.1)
[2020-03-21 06:09] LABS: Albumin 2.6 g/dL (3.5-5.7); Albumin/Globulin Ratio 0.8 (1.1-2.2); Bilirubin,Total 1.6 mg/dL (0.3-1.0); Globulin 3.4 g/dL (2.4-3.5)
[2020-03-21] MEDS: Insulin LISPRO 300 UNITS/3 ML VIAL SQ SCH ×4 (07:41→20:08)
[2020-03-21] MEDS ORDERED: Furosemide 40 MG TABLET PO SCH (09:00)
[2020-03-21] MEDS ORDERED: Metoprolol XL (24 HR) Succ 50 MG TAB.ER.24H PO SCH (09:00)
[2020-03-21] MEDS: Albumin Human 5% 12.5 GM/250 ML IV.SOLN IVC SCH ×2 (09:03→12:28)
[2020-03-21] MEDS: Cholecalciferol (D-3) 1,000 UNIT (25MCG) TABLET PO SCH (09:04)
[2020-03-21] MEDS: metroNIDAZOLE 500 MG TABLET PO SCH ×3 (09:04→20:07)
[2020-03-21] MEDS: polyethylene glycoL 3350 17 GM POWD.PACK PO SCH (09:04)
[2020-03-21] MEDS: Sennosides/Docusate Sodium TABLET PO SCH ×2 (09:04→20:07)
[2020-03-21] MEDS ORDERED: Piperacillin/Tazobactam 3.375 GM in 0.9 % Sodium Chloride Mini Bag 100 ML IVPB SCH (10:57)
[2020-03-21] MEDS: Furosemide 40 MG TABLET PO SCH ×2 (11:46→17:05)
[2020-03-21] MEDS ORDERED: Metoprolol XL (24 HR) Succ 50 MG TAB.ER.24H PO ONE (12:25)
[2020-03-21] MEDS: Levalbuterol Neb 1.25 MG/3 ML IH SCH ×3 (12:50→22:25)
[2020-03-21] MEDS: *HR* Amiodarone 200 MG TABLET PO SCH ×2 (13:38→20:07)
[2020-03-21] MEDS: Piperacillin/Tazobactam 3.375 GM in 0.9 % Sodium Chloride Mini Bag 100 ML IVPB SCH (20:05)
[2020-03-21] MEDS: Metoprolol XL (24 HR) Succ 50 MG TAB.ER.24H PO SCH (20:06)
[2020-03-21] MEDS: Gabapentin 300 MG CAPSULE PO SCH (20:07)
[2020-03-22] MEDS ORDERED: Amiodarone Premix 150 MG/100 ML BAG IVPB ONE
[2020-03-22] MEDS ORDERED: Amiodarone Premix 360 MG/200 ML BAG IVC ONE
[2020-03-22] MEDS: Levalbuterol Neb 1.25 MG/3 ML IH SCH ×4 (04:06→22:16)
[2020-03-22] MEDS: Piperacillin/Tazobactam 3.375 GM in 0.9 % Sodium Chloride Mini Bag 100 ML IVPB SCH (04:35)
[2020-03-22 05:22] LABS: Basophils # 0.1 K/mcL (0.0-0.2); Basophils % 0.2 %; Eosinophils # 0.1 K/mcL (0.0-0.6); Eosinophils % 0.4 %; Hematocrit 26.8 % (37.5-50.1); Hemoglobin 8.4 g/dL (12.9-16.9); Immature Granulocytes % 1.4 % (0-4); Lymphocytes # 1.2 K/mcL (0.6-4.6); Lymphocytes % 4.7 %; Mean Corpuscular HGB Conc 31.3 g/dL (31.6-35.5); Mean Corpuscular Hemoglobin 28.9 pg (28.0-33.3); Mean Corpuscular Volume 92.1 fL (83.0-100.0); Mean Platelet Volume 10.6 fL (9.4-12.4); Monocytes # 1.4 K/mcL (0.0-1.3); Monocytes % 5.6 %; Neutrophils # 21.8 K/mcL (1.6-8.9); Platelet Count 218 K/mcL (140-400); Red Blood Count 2.91 M/mcL (4.19-5.50); Red Cell Distribution Width 17.6 % (11.5-14.5); Segmented Neutrophils % 87.7 %; White Blood Count 24.9 K/mcL (4.3-11.1)
[2020-03-22 05:34] LABS: Albumin 2.3 g/dL (3.5-5.7); Albumin/Globulin Ratio 0.7 (1.1-2.2); Bilirubin,Total 1.4 mg/dL (0.3-1.0); Calcium 7.5 mg/dL (8.6-10.3); Globulin 3.2 g/dL (2.4-3.5); Magnesium 1.9 mg/dL (1.6-2.6); Potassium 4.7 mEq/L (3.5-5.1); Total Protein 5.5 g/dL (6.4-8.9)
[2020-03-22] MEDS ORDERED: Amiodarone Premix 360 MG/200 ML BAG IVC SCH (06:00)
[2020-03-22 06:29] LABS: Platelet Estimate Normal (Normal)
[2020-03-22] MEDS ORDERED: Iron Sucrose Complex 400 MG in 0.9 % Sodium Chloride 250 ML IVPB ONE (07:41)
[2020-03-22] MEDS ORDERED: Vancomycin 1,250 MG/262.5 ML IV.SOLN IVPB ONE (08:00)
[2020-03-22] MEDS ORDERED: Cefepime HCl 1,000 MG in 0.9 % Sodium Chloride Mini Bag 100 ML IVPB SCH (08:00)
[2020-03-22] MEDS ORDERED: Apixaban 5 MG TABLET PO SCH (09:00)
[2020-03-22] MEDS: Insulin LISPRO 300 UNITS/3 ML VIAL SQ SCH ×4 (11:02→20:06)
[2020-03-22] MEDS: Furosemide 40 MG TABLET PO SCH ×2 (11:02→16:28)
[2020-03-22] MEDS: polyethylene glycoL 3350 17 GM POWD.PACK PO SCH (11:07)
[2020-03-22] MEDS: Cholecalciferol (D-3) 1,000 UNIT (25MCG) TABLET PO SCH (11:07)
[2020-03-22] MEDS: Metoprolol XL (24 HR) Succ 50 MG TAB.ER.24H PO SCH ×2 (11:07→20:06)
[2020-03-22] MEDS: Sennosides/Docusate Sodium TABLET PO SCH ×2 (11:07→20:06)
[2020-03-22] MEDS: metroNIDAZOLE 500 MG TABLET PO SCH (12:50)
[2020-03-22] MEDS: Gabapentin 300 MG CAPSULE PO SCH (20:06)
[2020-03-23] MEDS: Levalbuterol Neb 1.25 MG/3 ML IH SCH ×2 (03:47→10:03)
[2020-03-23 08:12] VITALS: BP 125/83
[2020-03-23] MEDS: Insulin LISPRO 300 UNITS/3 ML VIAL SQ SCH ×2 (08:21→11:28)
[2020-03-23] MEDS: Cholecalciferol (D-3) 1,000 UNIT (25MCG) TABLET PO SCH (08:22)
[2020-03-23] MEDS: Furosemide 40 MG TABLET PO SCH (08:22)
[2020-03-23] MEDS: Metoprolol XL (24 HR) Succ 50 MG TAB.ER.24H PO SCH (08:22)
[2020-03-23] MEDS: Sennosides/Docusate Sodium TABLET PO SCH (08:22)
[2020-03-23] MEDS: polyethylene glycoL 3350 17 GM POWD.PACK PO SCH (08:22)
== END 2020-03-23 13:37 | disposition hospice, home (50) | DRG 356 ==
LOC: 3BNU → SUATTDRO 19:04 → 2ANU 03-08 15:46 → SUATTDRO 03-08 15:47 → 2NNU 03-22 04:12 → 2ANU 03-22 12:50
PROVIDERS: ADMIT Family Medicine; ATTEND Internal Medicine
PROC: ENDOEBX (2020-03-08 08:00)
PROC: IRPERMA (2020-03-12 12:00)